=== PATIENT | female | born 1950 | race Caucasian/White ===

== ENCOUNTER 2019-04-17 19:54 | Emergency (ER) | payer OTHER ==
[~2019-04-17] VITALS: Ht 157.5 cm; Wt 48.5 kg
[~2019-04-17 19:54] MED LIST: ACETAMINOPHEN325 M1 PO; CALCIUM 600 +1 EAC5 PO; COLACE 100 MG100 MG PO; FISH OIL 1,0001 EAC5 PO; LO-DOSE ASPIRIN81 M1 PO; LOPRESSOR 50 MG50 M1 PO; NAPROSYN500 MG PO; ONE DAILY COMP1 EAC1 PO; SIMVASTATIN20 MG PO; XANAX 0.25 MG0.25 MG PO; ZYRTEC 10 MG TA10 M1 PO; ZYRTEC10 M1 PO
[2019-04-17] MEDS ORDERED: NORVASC 2.5 MG2.5 M1 PO (20:24)
[2019-04-17] MEDS ORDERED: LIALDA1.2 GM PO (20:24)
[2019-04-17] MEDS ORDERED: ASA81BEC PO (20:25)
[2019-04-17 20:46] LABS: ABSOLUTE NEUTROPHILS 6.8 thou/uL (1.4-8.2); BASOPHILS 0.8 % (0.0-2.0); EOSINOPHILS 2.8 % (0.0-3.0); HEMATOCRIT 41.9 % (37.0-47.0); HEMOGLOBIN 14.1 gm/dL (12.0-15.0); LYMPHOCYTES 10.7 % (24.0-44.0); MCH 31.1 pg (26.0-34.0); MCHC 33.7 g/dL (28.0-37.0); MCV 92.3 fL (80.0-100.0); MONOCYTES 10.1 % (1.0-8.0); PLATELET COUNT 273 thou/uL (150-400); POLYS 75.6 % (36.0-66.0); RBC 4.54 mil/uL (4.20-5.00); RDW 13.8 % (10.5-14.5)
[2019-04-17 20:52] LABS: ANION GAP 9 mmol/L (7-16); BUN 13 mg/dL (7-18); CALCIUM 10.3 mg/dL (8.5-10.1); CHLORIDE 99 mmol/L (98-107); CO2 28 mmol/L (21-32); CREATININE 0.6 mg/dL (0.6-1.0); GLUCOSE 141 mg/dL (74-106); POTASSIUM 3.4 mmol/L (3.5-5.1); SODIUM 136 mmol/L (136-145)
[2019-04-17 21:00] LABS: SGOT 34 U/L (15-37); SGPT 20 U/L (30-65); TOTAL PROTEIN 7.9 g/dL (6.4-8.2); TROPONIN-I <0.06 ng/mL (<0.06)
[2019-04-17 22:15] VITALS: BP 144/75
--- NOTE | 2019-04-18 17:08 | EKG ---
[address] [address] ELECTROCARDIOGRAM REPORT Name: MARGAUX LESTERBUTCH Hector Room #: [facility]#: [id number] Admission: 04/17/19 Attend Phys: Discharge: 04/17/19 Date of : 48 Report #: [id number] THIS REPORT FOR: //name// [facility] ED Test Date: 2019-04-17 Test Time: 20:37:17 Pat Name: BUTCH BATISTA Department: Room: Gender: F Acid Blower: FIDEL : 1950 Requested By: Edin Ty Order Number: [id number] MD: Danny Jarrett Measurements Intervals [place] Rate: 73 P: 82 WV: 113 QRS: 73 QRSD: 81 T: 68 QT: 367 QTc: 405 Interpretive Statements Sinus rhythm Borderline short [place] interval Compared to ECG 03/23/2013 10:33:10 No significant change was found Electronically Signed On 04-18-2019 17:08:16 [employer] SERVICE [employer]PER[employer] by Danny Jarrett [email or web address] <ELECTRONICALLY SIGNED> By: Danny Jarrett MD, [facility] 04/18/19 1708 36 36 Danny Jarrett MD, FACC /EPI
== END 2019-04-17 22:15 | disposition home or self-care (01) ==
LOC: ER 19:54
PROVIDERS: Emergency Medicine
DX: R06.02 Shortness of breath (principal); I10 Essential (primary) hypertension; Z85.118 Personal history of other malignant neoplasm of bronchus and lung; Z98.890 Other specified postprocedural states; Z88.1 Allergy status to other antibiotic agents; Z87.891 Personal history of nicotine dependence